=== PATIENT | male | born 1975 | race Caucasian/White ===

== ENCOUNTER 2018-10-18 07:37 | Day surgery (SDC) | payer OTHER ==
[2018-10-10 13:44] VITALS: BMI 25.8
[2018-10-18] MEDS ORDERED: MIDAZOLAM HCL 2 MG/2 ML SINGLE DOSE VIAL ONE (08:51)
[2018-10-18] MEDS ORDERED: PROPOFOL 20 ML ONE ×3 (08:59→09:11)
[2018-10-18] MEDS ORDERED: BUPIVACAINE HCL/PF 0.25% (2.5MG/ML) 10 ML VIAL IJ ONE (09:36)
[2018-10-18] MEDS ORDERED: ACETAMINOPHEN 325 MG TABLET (FP) PO PRN (10:45)
[2018-10-18] MEDS ORDERED: ONDANSETRON 4 MG/2 ML VIAL IVPUSH PRN (10:45)
[2018-10-18] MEDS ORDERED: oxyCODONE HCL 5 MG TABLET PO PRN (10:45)
[2018-10-18] MEDS ORDERED: LACTATED RINGERS SOLUTION 1,000 ML IV SCH (10:45)
[2018-10-18] MEDS ORDERED: oxyCODONE HCL 5 MG TABLET ONE (11:15)
[2018-10-18] MEDS ORDERED: ACETAMINOPHEN 325 MG TABLET (FP) ONE (11:15)
[2018-10-18 12:20] VITALS: TEMP 97.2
[2018-10-18 12:29] VITALS: BP 118/74; PULSE 64
--- NOTE | 2018-10-19 11:35 | OP ---
DATE OF OPERATION: 10/18/2018 PREOPERATIVE DIAGNOSIS: Right ulnar neuropathy at the elbow. POSTOPERATIVE DIAGNOSIS: Right ulnar neuropathy at the elbow. OPERATIVE PROCEDURE: Right ulnar nerve decompression at the elbow. SURGEON: Tushar Kaye MD GLUE LINE OPERATOR: BRYAN Bauer ANESTHESIA: General. COMPLICATIONS: None. ESTIMATED BLOOD LOSS: Minimal. INDICATIONS FOR PROCEDURE: The patient is a 43-year-old male with the above findings, indicated for operative treatment. The risks, benefits, and alternatives were discussed with the patient at length. Proper informed consent was obtained. DESCRIPTION OF PROCEDURE: After proper identification of the patient and the correct operative site, the patient was brought to the operating room and placed supine on the operating table with prominences well padded. General anesthesia was given. Right upper extremity was prepped and draped in the usual sterile fashion. Well-padded tourniquet was placed with a sterile prep. Esmarch bandage used to exsanguinate the right upper extremity. Tourniquet inflated to 250 mmHg. A curvilinear incision was made over the posterior medial aspect of the elbow. Incision was taken sharply through the skin with blunt and sharp dissection through subcutaneous tissues taking care to protect sensory branches of the nerve. The nerve was identified adjacent to the medial intermuscular septum, which was partially resected, and the nerve was traced through all sites of potential compression from this area all the way to the insertion of the 2 heads of the flexor carpi ulnaris muscle. This provided complete release of the ulnar nerve at the elbow. Elbow was taken through a range of motion, and there was no evidence of self-compression or subluxation. Therefore, no transposition was performed. The nerve itself did appear to be slightly compressed with an hourglass configuration beneath the Scales ligament. Wound was irrigated with saline and repaired with 4-0 Vicryl and 4-0 Monocryl sutures. Sterile dressings were applied. The patient was reversed from anesthesia and brought to the recovery room in stable condition. He tolerated the procedure well. Dominick Shaw, the commercial assistant, was integral throughout this procedure. This procedure could not have been performed without a skilled operative commercial assistant. Christiane JOHNSON/[id number]
== END 2018-10-18 12:00 | disposition home or self-care (01) ==
LOC: FASU 07:37
PROVIDERS: ATTEND Orthopaedic Surgery Hand Surgery
PROC: 01N40ZZ Release Ulnar Nerve, Open Approach (ICD-10-PCS; principal; 2018-10-18 09:00)
DX: G56.21 Lesion of ulnar nerve, right upper limb (principal)
CPT/HCPCS: 94760